=== PATIENT | female | born 1960 | race Caucasian/White ===

== ENCOUNTER 2021-03-24 00:17 | Emergency (ER) | payer BC, OTHER ==
[2021-03-24] MEDS ORDERED: NORCO 5/325 MG PO ONE (00:34)
[2021-03-24] MEDS ORDERED: Adacel Vial IM ONE ×2 (00:35→00:50)
--- NOTE | 2021-03-24 00:47 | ERPHSYRPT ---
- History of Present Illness Time Seen by Provider: 03/24/21 00:23 Source: patient Exam Limitations: no limitations Physician History: 51 years old female with history of diabetes mellitus presented in the ER with chief complaint of fall. Patient was [place] [place] moving a stop sign, tripped and fell forward, hitting her right shoulder/left knee and right hip/right low back. Did not hit her head or loss of consciousness. Denies any chest pain palpitations or shortness of breath. No abdominal pain nausea or vomiting. Denies any neck pain, dizziness or lightheadedness. She is complaining of pain in the left knee with some abrasion. Patient was able to get up and ambulate without any limitation. She is also complaining of pain with movements of right shoulder with no numbness tingling or weakness in the right upper extremity. Occurred: just prior to arrival Reason for Fall: tripped, fell from standing pos Injuries/Pain Location: upper extremity, back, lower extremity Loss of Consciousness: no loss of consciousness Quality: sharpness Severity of Pain-Max: moderate Severity of Pain-Current: moderate Modifying Factors: Improves With: immobilization, rest. Worsens With: movement Associated Symptoms (Fall): back pain, extremity injury, muscle spasms, No abdominal pain, No confusion, No chest pain, No dizziness, No headache, No lightheadedness, No nausea, No neck pain, No ringing in ears, No seizures, No shortness of breath, No slurred speech, No trouble walking, No vomiting Allergies/Adverse Reactions: metformin Allergy (Verified 03/24/21 00:32) - Review of Systems Constitutional: No Symptoms Eyes: No Symptoms Ears, Nose, & Throat: No Symptoms Respiratory: No Symptoms Cardiac: No Symptoms Abdominal/Gastrointestinal: No Symptoms Genitourinary Symptoms: No Symptoms Musculoskeletal: Back Pain, Fall, Injury, Joint Pain, Myalgias, No Neck Pain Skin: Skin Lesions Neurological: No Symptoms Psychological: No Symptoms Endocrine: No Symptoms Hematologic/Lymphatic: No Symptoms, Easy Bruising - Nursing Vital Signs Nursing Vital Signs: Initial Vital Signs O2 Sat by Pulse Oximetry 96 03/24/21 00:47 - [place] Coma Score Best Eye Response ([place]): (4) open spontaneously Best Verbal Response ([place]): (5) oriented Best Motor Response ([place]): (6) obeys commands [place] Total: 15 - Physical Exam General Appearance: no apparent distress, alert Head Injury: no evidence of injury Eye Exam: PERRL/EOMI ENT Exam: airway nml Neck Exam: supple, trachea midline, full range of motion, normal alignment, normal inspection, No tenderness Respiratory/Chest Exam: normal breath sounds, No chest tenderness, No respiratory distress Cardiovascular Exam: normal heart sounds, regular rate/rhythm Gastrointestinal Exam: soft, No tenderness, No distention, No guarding, No ecchymosis Back Exam: normal inspection, muscle spasm (Right sacroiliac area), No vertebral tenderness Extremity Exam: normal range of motion, pelvis stable, swelling (Left knee with abrasion around the kneecap. Intact range of motion. Reproducible pain in the right shoulder with movements. No Hill-Sachs deformity.), No deformities Neurologic Exam: alert, oriented x 3, cooperative, oim architect II-XII nml as tested, normal mood/affect, nml cerebellar function, nml station & gait, sensation nml, No motor deficits Skin Exam: normal color, warm, dry SpO2 Interpretation: normal SpO2: 96 O2 Delivery: Room Air Ordered Tests: Active Orders 24 hr Category Date Time Status HIP UNI (2V) INCL PEL IF DONE Stat Exams 03/24/21 Ordered KNEE (MIN 4 VIEW) Stat Exams 03/24/21 Ordered SHOULDER Stat Exams 03/24/21 Ordered Medication Summary Discontinued Medications Generic Name Dose Route Start Last Admin Trade Name Kinq PRN Reason Stop Dose Admin Hydrocodone Bitart/Acetaminophen 2 tab 03/24/21 00:34 Brandon 5/325 Mg PO 03/24/21 00:35 STAT ONE Diphtheria/Tetanus/Acell Pertussis 0.5 ml 03/24/21 00:35 Adacel Vial IM 03/24/21 00:36 .ONCE ONE - Progress Progress: improved, pain not gone completely Progress Note: 03/24/21 she is given pain medication for symptomatic relief. X-rays ruled out any fracture dislocation. Patient is feeling better on reevaluation. Did not hit her head. It was a clear mechanical fall, do not think needs any other work-up. Recommended taking Tylenol as needed and outpatient follow-up with primary care. Discussed signs symptoms of worsening needing return to ER which she seems understanding. Counseled pt/family regarding: diagnosis, need for follow-up, rad results - Departure Departure Disposition: Home Clinical Impression: Fall Qualifiers: Encounter type: initial encounter Qualified Code(s): W19.XXXA - Unspecified fall, initial encounter Knee contusion Qualifiers: Encounter type: initial encounter Laterality: left Qualified Code(s): S80.02XA - Contusion of left knee, initial encounter Right shoulder strain Qualifiers: Encounter type: initial encounter Qualified Code(s): S46.911A - Strain of unspecified muscle, fascia and tendon at shoulder and upper arm level, right arm, initial encounter Low back strain Qualifiers: Encounter type: initial encounter Qualified Code(s): S39.012A - Strain of muscle, fascia and tendon of lower back, initial encounter Condition: Stable Critical Care Time: No Referrals: [facility] [employer] [Primary Care Provider] - Follow Up with PCP/3 days Instructions: Contusion (DC) Additional Instructions: Take Tylenol as needed for pain. Follow-up with primary care physician for reevaluation. Return to ER for any worsening. Also return to ER for intractable headache, vomiting, neck pain, numbness tingling weakness etc.
[2021-03-24] MEDS ORDERED: NORCO 5/325 MG ONE (00:50)
[2021-03-24 01:51] VITALS: BP 142/76; PULSE 72; O2SAT 95
--- NOTE | 2021-03-24 07:33 | XRAY ---
Indication: Pain following fall. Comparison: None 3 view left knee demonstrates minimal medial joint space narrowing and mild scattered vascular calcifications. No other bony, articular, or soft tissue abnormalities.
--- NOTE | 2021-03-24 07:33 | XRAY ---
Indication: Pain following fall. Comparison: None 3 view right shoulder demonstrates mild AC degenerative arthropathy. No other bony, articular, or soft tissue abnormalities.
--- NOTE | 2021-03-24 07:35 | XRAY ---
Indication: Pain following fall. Comparison: None AP pelvis and 2 view right hip demonstrates lumbosacral junction posterior fusion hardware/bone grafts and mild scattered vascular calcifications. No other bony, articular, or soft tissue abnormalities.
== END 2021-03-24 01:49 | disposition home or self-care (01) ==
LOC: ED 00:17
DX: S80.02XA Contusion of left knee, initial encounter (principal); S46.911A Strain of unspecified muscle, fascia and tendon at shoulder and upper arm level, right arm, initial encounter; S39.012A Strain of muscle, fascia and tendon of lower back, initial encounter; W19.XXXA Unspecified fall, initial encounter; E11.9 Type 2 diabetes mellitus without complications
CPT/HCPCS: 73030; 73502; 73562; 90471; 90715; 99284; A9270-GY